=== PATIENT | female | born 1950 | race Hispanic/Latino ===

== ENCOUNTER → 2021-03-24 | Outpatient (CLI) | payer OTHER | END | disposition home or self-care (01) | LOC: SHCH 08:32 | PROVIDERS: ATTEND Student in an Organized Health Care Education/Training Program | DX: I25.3 Aneurysm of heart (principal); R55 Syncope and collapse; I10 Essential (primary) hypertension; I45.10 Unspecified right bundle-branch block; E78.5 Hyperlipidemia, unspecified | CPT/HCPCS: 93306; 93356 ==

== ENCOUNTER → 2024-08-01 | Outpatient (CLI) | payer OTHER ==
--- NOTE | 2024-08-04 14:11 | HMCSR ---
APPROVED REPORT Laterality: Bilateral Indications r09.89 Doppler Spectral Velocity Analysis PSV / EDVPSV / EDV ECA (R) 145 / cm/sECA (L) 143 / cm/s dICA (R) 107 / 30 cm/sdICA (L) 141 / 36 cm/s Esa (R) 90 / 21 cm/smICA (L) 143 / 30 cm/s pICA (R) 105 / 33 cm/spICA (L) 139 / 37 cm/s dCCA (R) 73 / 17 cm/sdCCA (L) 113 / 24 cm/s mCCA (R) 95 / 27 cm/smCCA (L) 97 / 19 cm/s pCCA (R) 109 / 18 cm/spCCA (L) 116 / 18 cm/s Vert (R) 51 / cm/sVert (L) 42 / cm/s Subl. (R) 317 / cm/sSubl. (L) 296 / cm/s ICA/CCA 0.98ICA/CCA 1.23 Technologist Impression Mild plaque noted in the bilateral carotids Right ICA appears patent, without hemodynamic significance. Left ICA shows evidence of 50-69% stenosis. Bilateral vertebral arteries appear antegrade. Right and Left subclavian arteries velocities are suggestive of >50% stenosis. Conclusion Mild plaque noted in the bilateral carotids Right ICA appears patent, without hemodynamic significance. Left ICA shows evidence of 50-69% stenosis. Bilateral vertebral arteries appear antegrade. Right and Left subclavian arteries velocities are suggestive of >50% stenosis. Obtain CTA carotid and aorta. Conclusion Mild plaque noted in the bilateral carotids Right ICA appears patent, without hemodynamic significance. Left ICA shows evidence of 50-69% stenosis. Bilateral vertebral arteries appear antegrade. Right and Left subclavian arteries velocities are suggestive of >50% stenosis. Obtain CTA carotid and aorta.
--- NOTE | 2024-08-04 14:11 | HMCSR ---
APPROVED REPORT Indications r09.89 Duplex Results A/PTransverseLongitudinalVelocityWaveform Proximal Aorta 2.12cm2.23cm2.07cm83.90 cm/sec Mid Aorta 2.09cm2.25cm1.60av900.20 cm/sec Distal Aorta 1.41cm1.59cm1.23fe361.90 cm/sec Rt. Common Iliac Artery0.91cm1.01cm0.49ia987.40 cm/sec Lt. Common Iliac Artery 0.91cm0.95cm1.87ps796.70 cm/sec Techologist Impression The abdominal aorta and the right and left common iliac arteries are patent and normal in size withou t evidence of aneurysm. There is evidence of mild atherosclerotic disease. Conclusion The abdominal aorta and the right and left common iliac arteries are patent and normal in size withou t evidence of aneurysm. There is evidence of mild atherosclerotic disease. Conclusion The abdominal aorta and the right and left common iliac arteries are patent and normal in size withou t evidence of aneurysm. There is evidence of mild atherosclerotic disease.
== END | disposition home or self-care (01) ==
LOC: SHCH 08:50
PROVIDERS: ATTEND Student in an Organized Health Care Education/Training Program
DX: I65.23 Occlusion and stenosis of bilateral carotid arteries (principal); I70.0 Atherosclerosis of aorta; I71.40 Abdominal aortic aneurysm, without rupture, unspecified; R09.89 Other specified symptoms and signs involving the circulatory and respiratory systems
CPT/HCPCS: 93880; 93978